=== PATIENT | female | born 1955 | race Two or more races ===

== ENCOUNTER 2021-10-13 09:34 | Outpatient (CLI) | payer MEDICARE, BC | END 2021-10-13 23:59 | disposition home or self-care (01) | LOC: WOU 09:34 | PROVIDERS: ATTEND Podiatrist Foot & Ankle Surgery | DX: S93.401D Sprain of unspecified ligament of right ankle, subsequent encounter (principal); Y93.01 Activity, walking, marching and hiking; I87.2 Venous insufficiency (chronic) (peripheral); R60.0 Localized edema; M25.571 Pain in right ankle and joints of right foot; E11.9 Type 2 diabetes mellitus without complications | CPT/HCPCS: 73600; 73630; G0463 ==

== ENCOUNTER → 2021-10-20 | Outpatient (CLI) | payer MEDICARE, BC | END | disposition home or self-care (01) | LOC: MRI 12:59 | PROVIDERS: ATTEND Podiatrist Foot & Ankle Surgery | DX: M65.871 Other synovitis and tenosynovitis, right ankle and foot (principal); M77.31 Calcaneal spur, right foot; R60.0 Localized edema; M62.571 Muscle wasting and atrophy, not elsewhere classified, right ankle and foot | CPT/HCPCS: 73721-TC ==

== ENCOUNTER 2021-11-03 09:15 | Outpatient (CLI) | payer MEDICARE, BC | END 2021-11-03 23:59 | disposition home or self-care (01) | LOC: WOU 09:15 | PROVIDERS: ATTEND Podiatrist Foot & Ankle Surgery | DX: S93.401D Sprain of unspecified ligament of right ankle, subsequent encounter (principal); X58.XXXD Exposure to other specified factors, subsequent encounter; I87.2 Venous insufficiency (chronic) (peripheral); E11.9 Type 2 diabetes mellitus without complications; R60.0 Localized edema; M25.571 Pain in right ankle and joints of right foot | CPT/HCPCS: G0463 ==